=== PATIENT | male | born 1960 | race African-American/Black ===

== ENCOUNTER 2018-01-10 22:41 | Emergency (ER) | payer MEDICAID ==
[~2018-01-10] VITALS: Ht 177.8 cm; Wt 97.1 kg
[2018-01-10 23:01] VITALS: BP_SYST 137
[2018-01-11 00:01] LABS: HEMOGLOBIN 14.6 g/dL (14.0-18.0); MEAN CORPUSCULAR HEMOGLOBIN 32 pg (27-31); MEAN CORPUSCULAR HGB CONC 33 % (32-36); MEAN CORPUSCULAR VOLUME 95 fL (79.0-98.0); PLATELET COUNT (AUTO) 158 K/uL (130-430); RED BLOOD CELL COUNT(AUTO) 4.63 MIL/uL (4.2-6.2); RED CELL DISTRIBUTION WIDTH 12.7 % (9.0-15.0); WHITE BLOOD COUNT (AUTO) 6.2 K/uL (4.8-10.8)
[2018-01-11 00:09] LABS: CALCIUM 8.7 mg/dL (8.4-11.0); CREATININE 1.38 mg/dL (0.55-1.30); POTASSIUM 3.5 mmol/L (3.5-5.1)
[2018-01-11 00:15] LABS: ALBUMIN 3.5 g/dL (3.4-4.8); TOTAL BILIRUBIN 0.3 mg/dL (0.0-1.0)
[2018-01-11 00:28] LABS: ATYPICAL LYMPHOCYTES % 5 % (0-0); BASOPHILS % (MANUAL) 0 % (0-2); EOSINOPHILS % (MANUAL) 9 % (0-7); LYMPHOCYTES % (MANUAL) 44 % (20-46); MONOCYTES % (MANUAL) 13 % (0-11)
[2018-01-11 00:50] VITALS: BP_SYST 130
== END 2018-01-11 00:50 | disposition home or self-care (01) ==
LOC: SED 22:41
DX: L03.116 Cellulitis of left lower limb (principal); I10 Essential (primary) hypertension
CPT/HCPCS: 36415; 80053; 85007; 85025; 85027; 85379; 93971; 99285

== ENCOUNTER 2020-05-10 02:49 | Emergency (ER) | payer MEDICAID ==
[~2020-05-10] VITALS: Ht 177.8 cm; Wt 99.3 kg
[2020-05-10 02:59] VITALS: BP_SYST 162
[2020-05-10] MEDS ORDERED: DIAZEPAM 5 MG TABLET (VALIUM) ONE (03:59)
[2020-05-10] MEDS ORDERED: KETOROLAC TROMETHAMINE 60 MG/2 ML VIAL IM ONE (04:00)
[2020-05-10] MEDS ORDERED: DIAZEPAM 10 MG/2 ML DISP.SYRIN IM ONE (04:00)
[2020-05-10] MEDS ORDERED: DIAZEPAM 5 MG TABLET (VALIUM) PO ONE (04:30)
[2020-05-10] MEDS ORDERED: TRAM100T27 PO (04:41)
[2020-05-10] MEDS ORDERED: TRAM50TA2 PO (04:48)
[2020-05-10 04:54] VITALS: BP_SYST 154
== END 2020-05-10 04:54 | disposition home or self-care (01) ==
LOC: SED 02:49
DX: M54.5 Low back pain (principal); I10 Essential (primary) hypertension
CPT/HCPCS: 96372; 99283; J1885

== ENCOUNTER 2022-01-07 21:27 | Emergency (ER) | payer MEDICAID ==
[~2022-01-07] VITALS: Ht 177.8 cm; Wt 95.3 kg
[~2022-01-07 21:27] MED LIST: TRAM50TA2 PO
[2022-01-07 21:47] VITALS: BP_SYST 130
--- NOTE | 2022-01-07 21:54 | NUR ---
WALKED IN C/O FLU LIKE SYMPTOMS SINCE SATURDAY, +FEVER, COUGH, BODYACHES, FATIGUE. TOOK MOTRIN @0600.
--- NOTE | 2022-01-07 21:54 | NUR ---
Patient triaged and placed in waiting room. VSS and patient appears in no acute distress at this time. Accompanied by SELF, awaiting available bed, and MD notified of need for MSE.
[2022-01-08] MEDS ORDERED: ACETAMINOPHEN 500 MG TABLET PO ONE (01:00)
[2022-01-08] MEDS ORDERED: KETOROLAC TROMETHAMINE 30 MG VIAL IVP ONE (01:00)
[2022-01-08] MEDS ORDERED: METOCLOPRAMIDE HCL 10 MG/2 ML VIAL IVP ONE (01:00)
--- NOTE | 2022-01-08 01:27 | NUR ---
COVID AND FLU SAMPLE COLLECTED AND SENT TO LAB
[2022-01-08 02:17] LABS: BASOPHILS % (AUTO) 0.4 % (0.0-2.0); EOSINOPHILS % (AUTO) 0.2 % (0.0-4.0); HEMATOCRIT 46.5 % (36-54); HEMOGLOBIN 15.3 g/dL (14.0-18.0); LYMPHOCYTES # (AUTO) 1.4 K/uL (1.0-5.5); LYMPHOCYTES % (AUTO) 24.5 % (20.5-51.5); MEAN CORPUSCULAR HEMOGLOBIN 31 pg (27-31); MEAN CORPUSCULAR HGB CONC 33 % (32-36); MEAN CORPUSCULAR VOLUME 93 fL (79.0-98.0); MONOCYTES # (AUTO) 0.8 K/uL (0.0-1.0); MONOCYTES % (AUTO) 14.3 % (1.7-9.3); NEUTROPHILS # (AUTO) 3.4 K/uL (1.8-7.7); NEUTROPHILS % (AUTO) 60.6 % (40.0-70.0); PLATELET COUNT (AUTO) 125 K/uL (130-430); RED BLOOD CELL COUNT(AUTO) 5.01 MIL/uL (4.2-6.2); RED CELL DISTRIBUTION WIDTH 14.6 % (9.0-15.0); WHITE BLOOD COUNT (AUTO) 5.7 K/uL (4.8-10.8)
[2022-01-08 02:32] LABS: ANION GAP 7 (5-15); CALCIUM 8.7 mg/dL (8.4-11.0); CHLORIDE 102 mmol/L (98-107); CREATININE 1.43 mg/dL (0.55-1.30); GLUCOSE 110 mg/dL (70-99); POTASSIUM 3.9 mmol/L (3.5-5.1); UREA NITROGEN, BLOOD 16 mg/dL (8-21)
[2022-01-08 02:53] LABS: ALANINE AMINOTRANSFERASE 45 U/L (12-78); ALBUMIN 3.8 g/dL (3.4-4.8); ASPARTATE AMINOTRANSFERASE 33 U/L (10-37); TOTAL BILIRUBIN 0.4 mg/dL (0.0-1.0)
[2022-01-08 02:55] LABS: BILIRUBIN,URINE NEGATIVE (NEGATIVE); BLOOD, URINE NEGATIVE (NEGATIVE); CLARITY/URINE CLEAR (CLEAR); COLOR,URINE YELLOW (YELLOW); GLUCOSE,URINE 3+ (NEGATIVE); KETONES,URINE 1+ (NEGATIVE); LEUKOCYTE ESTERASE ,URINE NEGATIVE (NEGATIVE); NITRITE, URINE NEGATIVE (NEGATIVE); PROTEIN URINE NEGATIVE (NEGATIVE)
[2022-01-08 02:57] LABS: GFR AFRICAN AMERICAN 65 mL/min (>90)
[2022-01-08] MEDS ORDERED: OSELTAMIVIR PHOSPHATE 75 MG CAPSULE PO ONE (03:15)
[2022-01-08] MEDS ORDERED: TRAM50TA PO (03:39)
[2022-01-08] MEDS ORDERED: OSEL75CA PO (03:39)
[2022-01-08 03:49] LABS: BACTERIA,URINE FEW /HPF (None Seen); RBC,URINE NONE SEEN /HPF (0-3); WBC,URINE 0-3 /HPF (0-3)
[2022-01-08 03:50] LABS: MUCUS,URINE None Seen /LPF (None Seen)
[2022-01-08 04:01] VITALS: BP_SYST 123
[2022-01-08 05:03] LABS: INR 1.1 (0.80-1.20); PROTHROMBIN TIME 11.3 SECS (9.5-12.5)
== END 2022-01-08 04:14 | disposition home or self-care (01) ==
LOC: SED 21:27
DX: J10.1 Influenza due to other identified influenza virus with other respiratory manifestations (principal); R51.9 Headache, unspecified; R50.9 Fever, unspecified; R05.9 Cough, unspecified; E11.9 Type 2 diabetes mellitus without complications; I10 Essential (primary) hypertension; E78.00 Pure hypercholesterolemia, unspecified; Z79.899 Other long term (current) drug therapy; Z20.822 Contact with and (suspected) exposure to COVID-19
CPT/HCPCS: 80053; 81000; 85025; 85610; 85730; 87040; 87086; 84484; 36415; 99285; 83605; 87804 ×2; 87426; 93005; 71045; 96374; 96375; G9035; J1885; J2765